=== PATIENT | female | born 1940 | race Caucasian/White ===

== ENCOUNTER → 2017-06-09 | Outpatient (CLI) | payer MEDICARE, BC ==
[~2017-06-09] MED LIST: ALLEGRA PO; LIPITOR PO; NORVASC PO; SINGULAIR PO; VIT B-12 IM
--- NOTE | ~2017-06-09 | US85 ---
[facility] A Service of [facility] RADIOLOGY TEXT RESULTS PATIENT: MAGDI DAVIS LOCATION: CNIV : 40 UNIT #: [id number] AGE: [address]: Ruy Emmanuel MD SEX: F ORDER DR: [id number] [facility] [address] [place], [place] [address] [id number] O MR#: [id number] Acc #: [id number] NAME: MAGDI DAVIS : 1940 SEX: F STUDY DATE/TIME: 06/09/2017 15:19 UNIT: CNIV ROOM: STUDY DESCRIPTION: [facility] Unil or [facility] Stdy Attending Physician: Ruy Emmanuel M.D. Referring Physician: Ruy Emmanuel M.D. Ordering Physician: Ruy Emmanuel M.D. Primary Care Physician: Ruy Emmanuel M.D. MEDICAL IMAGING REPORT This report is preliminary unless electronic signature is present EXAM Left lower extremity venous duplex 06/09/2017 HISTORY Left lower extremity pain and edema for 1 week. Evaluate for deep vein thrombosis. TECHNIQUE Venous ultrasound examination of the left lower extremity was performed using grayscale, spectral Doppler and color flow Doppler imaging. FINDINGS The examination is negative. There is no evidence of left lower extremity deep venous thrombus from the groin to the lower calf. Visualized greater saphenous vein is also patent. IMPRESSION Negative examination. No evidence of left lower extremity deep venous thrombosis. Dictated by... Yunior Light M.D. THIS IS AN ELECTRONICALLY VERIFIED REPORT Yunior Light M.D. at 06/10/2017 7:33 AM POLLO/gale TD: 06/09/2017 16:51 JOB #: [id number] MEDICAL IMAGING REPORT [facility] A Service of [facility] RADIOLOGY TEXT RESULTS PATIENT: MAGDI DAVIS LOCATION: CNIV : 40 UNIT #: [id number] AGE: [address]: Ruy Emmanuel MD SEX: F ORDER DR: Page 1 of 1 COPY
== END | disposition home or self-care (01) ==
LOC: CNIV 15:03
DX: M79.89 Other specified soft tissue disorders (principal)
CPT/HCPCS: 93971